=== PATIENT | male | born 1985 | race Caucasian/White ===

== ENCOUNTER 2018-06-30 03:32 | Emergency (ER) | payer MEDICAID ==
[~2018-06-30] VITALS: Ht 175.3 cm; Wt 78.1 kg
[~2018-06-30 03:32] MED LIST: CLIN300C85 PO; HYDR-569 PO; IBUP-1986 PO; MECL25TA3 PO; MUPI15CR TP; ONDA4TAB6 PO
[2018-06-30] MEDS ORDERED: ibuprofen tablet 400 MG TABLET PO ONE (03:55)
[2018-06-30] MEDS ORDERED: LIDOcaine 40mg/ml topical solution MM ONE (03:55)
[2018-06-30] MEDS ORDERED: amoxicillin 250mg capsule PO ONE (03:55)
[2018-06-30] MEDS ORDERED: AMOX500C2 PO (03:59)
[2018-06-30] MEDS ORDERED: IBUP-1986 PO (03:59)
[2018-06-30] MEDS ORDERED: LIDOcaine Viscous 15ml cup MM ONE (04:00)
[2018-06-30 04:12] VITALS: BP 145/100
[2018-06-30] MEDS ORDERED: CLIN150C8 PO (14:33)
[2018-06-30] MEDS ORDERED: HYDR-3965 PO (14:33)
== END 2018-06-30 04:13 | disposition home or self-care (01) ==
LOC: ER 03:32
DX: K02.9 Dental caries, unspecified (principal); K08.89 Other specified disorders of teeth and supporting structures; R20.2 Paresthesia of skin; F12.10 Cannabis abuse, uncomplicated; F15.10 Other stimulant abuse, uncomplicated; Z88.8 Allergy status to other drugs, medicaments and biological substances
CPT/HCPCS: 99283; J2001

== ENCOUNTER 2018-06-30 13:32 | Emergency (ER) | payer MEDICAID ==
[~2018-06-30] VITALS: Ht 175.3 cm; Wt 77.7 kg
[2018-06-30 13:32] VITALS: BP 161/113
[~2018-06-30 13:32] MED LIST changes: +AMOX500C2 PO
[2018-06-30] MEDS ORDERED: HYDROcodone/acetaminophen 10/325mg tab PO ONE (14:20)
[2018-06-30] MEDS ORDERED: CefTRIAXone 1000mg IM Kit (w/lidocaine diluent) IM ONE (14:20)
[2018-06-30] MEDS ORDERED: HYDR-3965 PO (14:33)
[2018-06-30] MEDS ORDERED: CLIN150C8 PO (14:33)
== END 2018-06-30 14:50 | disposition home or self-care (01) ==
LOC: ER 13:32
DX: K08.89 Other specified disorders of teeth and supporting structures (principal); F12.10 Cannabis abuse, uncomplicated; F15.10 Other stimulant abuse, uncomplicated; Z88.8 Allergy status to other drugs, medicaments and biological substances
CPT/HCPCS: 96372; 99283; J0696

== ENCOUNTER 2018-07-01 06:42 | Emergency (ER) | payer MEDICAID ==
[~2018-07-01] VITALS: Ht 175.3 cm; Wt 77.7 kg
[~2018-07-01 06:42] MED LIST changes: +CLIN150C8 PO; +HYDR-3965 PO
[2018-07-01 06:57] VITALS: BP 155/82
== END 2018-07-01 07:14 | disposition home or self-care (01) ==
LOC: ER 06:42
DX: K04.7 Periapical abscess without sinus (principal); F12.10 Cannabis abuse, uncomplicated; F15.10 Other stimulant abuse, uncomplicated; Z88.8 Allergy status to other drugs, medicaments and biological substances
CPT/HCPCS: 99281

== ENCOUNTER 2018-07-11 14:41 | Emergency (ER) | payer MEDICAID, OTHER ==
[~2018-07-11] VITALS: Ht 175.3 cm; Wt 76.0 kg
[2018-07-11 14:46] VITALS: BP 142/80
[2018-07-11] MEDS ORDERED: CLIN150C8 PO (15:17)
== END 2018-07-11 15:28 | disposition home or self-care (01) ==
LOC: ER 14:41
DX: K08.89 Other specified disorders of teeth and supporting structures (principal); F12.10 Cannabis abuse, uncomplicated; F15.10 Other stimulant abuse, uncomplicated; Z76.0 Encounter for issue of repeat prescription; Z86.14 Personal history of Methicillin resistant Staphylococcus aureus infection
CPT/HCPCS: 99283

== ENCOUNTER 2019-06-19 13:18 | Emergency (ER) | payer MEDICAID, OTHER ==
[~2019-06-19] VITALS: Ht 177.8 cm; Wt 90.0 kg
[~2019-06-19 13:18] MED LIST changes: -AMOX500C2 PO; +CLIN-96 PO; -CLIN300C85 PO; -HYDR-3965 PO; +HYDR-4383 PO; -HYDR-569 PO
[2019-06-19] MEDS ORDERED: ketorolac trometh inj. 60 MG/2 ML VIAL IM ONE (13:50)
[2019-06-19] MEDS ORDERED: CYCL-1 PO (13:59)
[2019-06-19] MEDS ORDERED: LIDOcaine 1% W/epiNEPHrine 1:100,000 20ml vial ONE (14:00)
[2019-06-19 14:20] VITALS: BP 112/97
== END 2019-06-19 14:19 | disposition home or self-care (01) ==
LOC: ER 13:18
DX: M54.5 Low back pain (principal); F12.90 Cannabis use, unspecified, uncomplicated; F15.90 Other stimulant use, unspecified, uncomplicated; Z86.14 Personal history of Methicillin resistant Staphylococcus aureus infection; Z88.8 Allergy status to other drugs, medicaments and biological substances; Z79.899 Other long term (current) drug therapy
CPT/HCPCS: 20552; 96372; 99284; J1885

== ENCOUNTER 2019-07-04 08:40 | Emergency (ER) | payer MEDICAID ==
[~2019-07-04] VITALS: Ht 172.7 cm; Wt 88.0 kg
[~2019-07-04 08:40] MED LIST changes: +CYCL-1 PO
[2019-07-04 08:43] VITALS: BP 129/83
[2019-07-04] MEDS ORDERED: clindamycin 150mg capsule PO ONE (09:35)
[2019-07-04] MEDS ORDERED: CLIN150C99 PO (09:37)
[2019-07-04] MEDS ORDERED: ACET1TAB14 PO (09:37)
== END 2019-07-04 09:54 | disposition home or self-care (01) ==
LOC: ER 08:40
DX: K04.7 Periapical abscess without sinus (principal); F12.90 Cannabis use, unspecified, uncomplicated; F15.90 Other stimulant use, unspecified, uncomplicated; Z86.14 Personal history of Methicillin resistant Staphylococcus aureus infection; Z79.2 Long term (current) use of antibiotics; Z79.899 Other long term (current) drug therapy
CPT/HCPCS: 99283